=== PATIENT | male | born 1945 | race Caucasian/White ===

== ENCOUNTER → 2018-06-12 | Outpatient (CLI) | payer OTHER | LOC: HYPER 06:56 | DX: L89.153 Pressure ulcer of sacral region, stage 3 (principal); L89.613 Pressure ulcer of right heel, stage 3; L89.623 Pressure ulcer of left heel, stage 3; L89.893 Pressure ulcer of other site, stage 3; E66.01 Morbid (severe) obesity due to excess calories; E78.5 Hyperlipidemia, unspecified; G82.20 Paraplegia, unspecified; I25.10 Atherosclerotic heart disease of native coronary artery without angina pectoris; I10 Essential (primary) hypertension; J43.9 Emphysema, unspecified; R20.2 Paresthesia of skin; Z99.81 Dependence on supplemental oxygen; Z87.891 Personal history of nicotine dependence; Z68.25 Body mass index [BMI] 25.0-25.9, adult; Z96.0 Presence of urogenital implants ==

== ENCOUNTER → 2018-10-03 | Outpatient (CLI) | payer OTHER | LOC: HYPER 07-11 09:31 | DX: L89.153 Pressure ulcer of sacral region, stage 3 (principal); L89.614 Pressure ulcer of right heel, stage 4; L89.893 Pressure ulcer of other site, stage 3; L89.623 Pressure ulcer of left heel, stage 3; E66.01 Morbid (severe) obesity due to excess calories; E78.5 Hyperlipidemia, unspecified; G82.21 Paraplegia, complete; I10 Essential (primary) hypertension; I25.10 Atherosclerotic heart disease of native coronary artery without angina pectoris; J43.9 Emphysema, unspecified; Z96.0 Presence of urogenital implants; Z99.81 Dependence on supplemental oxygen; Z87.891 Personal history of nicotine dependence ==